=== PATIENT | male | born 1975 | race Caucasian/White ===

== ENCOUNTER 2017-04-01 03:41 | Emergency (ER) | payer OTHER ==
[2017-04-01] MEDS ORDERED: TORADOL IV ONE (04:48)
[2017-04-01] MEDS ORDERED: ZOFRAN IV ONE (04:48)
[2017-04-01] MEDS ORDERED: TORADOL ONE (04:51)
[2017-04-01] MEDS ORDERED: ZOFRAN ONE (04:51)
--- NOTE | 2017-04-01 05:33 | Cat Scan Report ---
FINAL REPORT EXAM: CT ABDOMEN PELVIS WO CON HISTORY: L flank pain w/ emid TECHNIQUE: CT images obtained through the Abdomen and Pelvis without contrast. Transaxial,coronal and sagittal reformats are provided. PRIORS: None. FINDINGS: Imaged intrathoracic contents are unremarkable. Kidneys are normal in size, axis and position. Mild left hydroureteronephrosis due to a 1 millimeter obstructing stone in the left ureterovesical junction on axial series 3, image 166. Nonobstructive stone is present in the right collecting system measuring up to 2 millimeters. No stones are seen within the urinary bladder. Hepatic steatosis. The liver, gallbladder, pancreas, spleen, and adrenal glands otherwise demonstrate an unremarkable noncontrast appearance. Hollow enteric organs are normal in course and caliber. Appendix is normal. No intra-abdominal free air/fluid or lymphadenopathy. Aorta is normal in course and caliber. Superficial soft tissues are unremarkable. No acute or aggressive appearing skeletal findings. IMPRESSION: Mild left hydroureteronephrosis due to an obstructing 1 millimeter ureterovesical junction stone.
[2017-04-01] MEDS ORDERED: NACL 0.9% 1000 ML 1,000 ML IV ONE (08:01)
[2017-04-01] MEDS ORDERED: DILAUDID IV ONE (08:23)
--- NOTE | 2017-04-01 08:23 | Emergency Department Report ---
ED Abdominal Pain HPI - General Chief Complaint: Abdominal Pain Stated Complaint: LT SIDE PAIN Time Seen by Provider: 04/01/17 08:19 Source: patient Mode of arrival: Ambulatory Limitations: No Limitations - History of Present Illness Initial Comments: This is a 42-year-old male who was previously unknown to this provider. Patient presented to the ER with left-sided flank pain radiates down to the left lower quadrant. There is no diarrhea, fevers, chills. There is no testicular pain. There are no irritative or obstructive urinary symptoms. Patient medicated with Zofran and Toradol prior to my evaluation, and reports that his pain is much improved. Patient vomited times one. MD Complaint: flank pain -: Gradual Location: LLQ, L flank Radiation: LLQ Migration to: LLQ Severity scale (0 -10): 10 Quality: cramping, aching Improves With: medication Worsens With: nothing Associated Symptoms: nausea, vomiting. denies: dysuria - Related Data Previous Rx's Medication Instructions Recorded Last Taken Type Ketorolac [Toradol] 10 mg PO Q6H PRN #20 tablet 04/01/17 Unknown Rx Ondansetron [Zofran Odt] 4 mg PO Q8HR PRN #20 tab.rapdis 04/01/17 Unknown Rx Tamsulosin [Flomax] 0.4 mg PO QDAY #30 cap 04/01/17 Unknown Rx oxyCODONE [Roxicodone] 5 mg PO Q6HR PRN #15 tablet 04/01/17 Unknown Rx Allergies Allergy/AdvReac Type Severity Reaction Status Date / Time No Known Allergies Allergy Verified 04/01/17 04:52 ED Review of Systems ROS: Stated complaint: LT SIDE PAIN Other details as noted in HPI Constitutional: denies: fever Eyes: denies: vision change ENT: denies: epistaxis Respiratory: denies: cough Cardiovascular: denies: chest pain Gastrointestinal: abdominal pain Genitourinary: denies: dysuria, testicular pain Musculoskeletal: back pain Neurological: denies: weakness Psychiatric: as per HPI ED Past Medical Hx - Past Medical History Previous Medical History?: No - Surgical History Past Surgical History?: No - Social History Smoking Status: Never Smoker Substance Use Type: None - Medications Home Medications: Home Medications Medication Instructions Recorded Confirmed Last Taken Type Ketorolac [Toradol] 10 mg PO Q6H PRN #20 tablet 04/01/17 Unknown Rx Ondansetron [Zofran Odt] 4 mg PO Q8HR PRN #20 tab.rapdis 04/01/17 Unknown Rx Tamsulosin [Flomax] 0.4 mg PO QDAY #30 cap 04/01/17 Unknown Rx oxyCODONE [Roxicodone] 5 mg PO Q6HR PRN #15 tablet 04/01/17 Unknown Rx ED Physical Exam - General Limitations: No Limitations General appearance: alert, in no apparent distress - Head Head exam: Present: atraumatic, normocephalic - Eye Eye exam: Present: normal appearance, EOMI. Absent: nystagmus - ENT ENT exam: Present: normal exam, normal orophraynx, mucous membranes moist, normal external ear exam - Neck Neck exam: Present: normal inspection, full ROM - Respiratory Respiratory exam: Present: normal lung sounds bilaterally. Absent: respiratory distress, chest wall tenderness - Cardiovascular Cardiovascular Exam: Present: regular rate, normal rhythm, normal heart sounds. Absent: systolic murmur, diastolic murmur, rubs, gallop - GI/Abdominal GI/Abdominal exam: Present: soft, normal bowel sounds. Absent: distended, tenderness, guarding, rebound, rigid, pulsatile mass - Rectal Rectal exam: Present: deferred - Extremities Exam Extremities exam: Present: normal inspection, full ROM, normal capillary refill. Absent: calf tenderness - Back Exam Back exam: Present: normal inspection, full ROM. Absent: paraspinal tenderness , vertebral tenderness - Neurological Exam Neurological exam: Present: alert, oriented X3, other (Extraocular movements intact. Tongue midline. No facial droop. Facial sensation intact to light touch in the V1, V2, V3 distribution bilaterally. 5 and 5 strength in 4 extremities.. Sensation is intact to light touch in 4 extremities.). Absent: motor sensory deficit - Psychiatric Psychiatric exam: Present: normal affect, normal mood - Skin Skin exam: Present: warm, dry, intact, normal color. Absent: rash ED Course Vital Signs 04/01/17 04/01/17 04/01/17 04:40 05:06 08:30 Temperature 97.8 F Pulse Rate 81 Respiratory 20 18 Rate Blood Pressure 148/95 122/68 O2 Sat by Pulse 100 100 Oximetry 04/01/17 04/01/17 04/01/17 08:46 09:00 09:16 Temperature Pulse Rate Respiratory Rate Blood Pressure 122/68 126/73 126/73 O2 Sat by Pulse 100 100 100 Oximetry 04/01/17 04/01/17 04/01/17 09:30 09:46 10:00 Temperature Pulse Rate Respiratory Rate Blood Pressure 140/95 140/95 132/90 O2 Sat by Pulse 98 98 100 Oximetry 04/01/17 04/01/17 04/01/17 10:16 10:30 10:46 Temperature Pulse Rate Respiratory Rate Blood Pressure 132/90 132/90 132/90 O2 Sat by Pulse 100 99 100 Oximetry ED Medical Decision Making - Lab Data Result diagrams: 04/01/17 08:31 Vital Signs 04/01/17 04/01/17 04/01/17 04:40 05:06 08:30 Temperature 97.8 F Pulse Rate 81 Respiratory 20 18 Rate Blood Pressure 148/95 122/68 O2 Sat by Pulse 100 100 Oximetry Lab Results 04/01/17 04/01/17 Range/Units 08:29 08:31 Sodium 143 (137-145) mmol/L Potassium 4.1 (3.6-5.0) mmol/L Chloride 104.2 (98-107) mmol/L Carbon Dioxide 26 (22-30) mmol/L Anion Gap 17 mmol/L BUN 13 (9-20) mg/dL Creatinine 0.9 (0.8-1.5) mg/dL Estimated GFR > 60 ml/min BUN/Creatinine Ratio 14 % Glucose 106 H (75-100) mg/dL Calcium 8.8 (8.4-10.2) mg/dL Urine Color Yellow (Yellow) Urine Turbidity Clear (Clear) Urine pH 6.0 (5.0-7.0) Ur Specific [place] 1.017 (1.003-1.030) Urine Protein <15 mg/dl (Negative) mg/dL Urine Glucose (UA) Neg (Negative) mg/dL Urine Ketones Neg (Negative) mg/dL Urine Blood Neg (Negative) Urine Nitrite Neg (Negative) Ur Reducing Substances Not Reportable Urine Bilirubin Neg (Negative) Urine Ictotest Not Reportable Urine Urobilinogen < 2.0 (<2.0) mg/dL Ur Leukocyte Esterase Neg (Negative) Urine WBC (Auto) 1.0 (0.0-6.0) /HPF Urine RBC (Auto) 1.0 (0.0-6.0) /HPF Urine Mucus Few /HPF - Radiology Data Radiology results: report reviewed, image reviewed Noncontrast CT scan of the abdomen and pelvis: Mild left hydroureteronephrosis due to an obstructing 1 mm UVJ junction stone. No other disease or pathology, aorta within normal limits. Appendix is normal. - Medical Decision Making Differential diagnosis, including but not limited to: Renal colic, constipation Assessment and plan: 41-year-old male with what is likely his first episode of renal colic. He is treated for pain aggressively. He is afebrile with reassuring vital signs, but no irritative urinary symptoms, no fever, very unlikely to be infected stone. Patient observed in the ER for a prolonged period of time without clinical decompensation, he is instructed to follow-up with outpatient urology. Return precautions are reviewed. Critical care attestation.: If time is entered above; I have spent that time in minutes in the direct care of this critically ill patient, excluding procedure time. ED Disposition Clinical Impression: Nephrolithiasis Disposition: - TO HOME OR SELFCARE Is pt being admited?: No Does the pt Need Aspirin: No Condition: Stable Instructions: Renal Colic (ED) Additional Instructions: Take the pain medication, nausea medication as needed. Follow-up with an outpatient urologist within the next 2 weeks. Return to the ER right away with new pain, worsening pain, migration of pain, fevers, chills, lethargy, irritability, projectile vomiting, change in mental status, inability to tolerate liquid feeds, confusion, new, worsening or different symptoms. Dr. Pablo is a local urology specialist. Prescriptions: Ketorolac [Toradol] 10 mg PO Q6H PRN #20 tablet PRN Reason: Pain Ondansetron [Zofran Odt] 4 mg PO Q8HR PRN #20 tab.rapdis PRN Reason: Nausea oxyCODONE [Roxicodone] 5 mg PO Q6HR PRN #15 tablet PRN Reason: Pain Tamsulosin [Flomax] 0.4 mg PO QDAY #30 cap Referrals: PRIMARY CARE, [Primary Care Provider] - 3-5 Days TAMMY PABLO MD [Staff Physician] - 3-5 Days Forms: Work/School Release Form(ED)
[2017-04-01 08:52] LABS: Mucus,Urine FEW /HPF
[2017-04-01 08:59] LABS: Anion Gap 17 mmol/L; BUN/Creatinine Ratio 14; Blood Urea Nitrogen 13 mg/dL (9-20); Calcium 8.8 mg/dL (8.4-10.2); Carbon Dioxide 26 mmol/L (22-30); Chloride 104.2 mmol/L (98-107); Glucose 106 mg/dL (75-100); Potassium 4.1 mmol/L (3.6-5.0); Sodium 143 mmol/L (137-145)
[2017-04-01 09:01] LABS: Bilirubin,Urine NEG (Negative); Blood,Urine NEG (Negative); Ketones,Urine NEG (Negative); Leukocyte Esterase,Urine NEG (Negative); Nitrite,Urine NEG (Negative); Protein,Urine <15 mg/dL mg/dL (Negative); Urobilinogen,Urine < 2.0 mg/dL (<2.0)
[2017-04-01 11:04] VITALS: BP 132/90
== END 2017-04-01 11:04 | disposition home or self-care (01) ==
LOC: ED 03:41
DX: N20.0 Calculus of kidney (principal)
CPT/HCPCS: 36415; 74176; 80048; 81001; 96361; 96374; 96375; 99284; J1170; J1885; J2405; J7030